=== PATIENT | male | born 1955 | race Caucasian/White ===

== ENCOUNTER → 2018-04-26 | Outpatient (CLI) | payer OTHER ==
[~2018-04-26] MED LIST: CYCLOBENZAPRINE10 MG PO; PREDNISONE50 MG PO
== END | disposition home or self-care (01) ==
LOC: ORTHO 02:25
DX: M25.552 Pain in left hip (principal); M79.605 Pain in left leg; R53.1 Weakness

== ENCOUNTER → 2018-05-10 | Outpatient (CLI) | payer OTHER | END | disposition home or self-care (01) | LOC: MRI 14:11 | DX: M47.896 Other spondylosis, lumbar region (principal); M48.061 Spinal stenosis, lumbar region without neurogenic claudication; M51.27 Other intervertebral disc displacement, lumbosacral region; M51.36 Other intervertebral disc degeneration, lumbar region ==

== ENCOUNTER 2019-07-19 09:17 | Inpatient (IN) | payer BC ==
[~2019-07-19] VITALS: Ht 175.2 cm; Wt 92.2 kg
[2019-07-19] VITALS (7 sets, daily range): BP systolic 109–165; BP diastolic 52–92
[2019-07-19 09:50] LABS: BASO # 0.1 10*3/uL (0.0-0.1); BASO % 0.9 % (0.0-1.0); EOS # 0.5 10*3/uL (0.0-0.4); EOS % 5.1 % (1.0-4.0); HEMATOCRIT 43.8 % (42.0-52.0); HEMOGLOBIN 15.2 g/dl (14.0-18.0); LYMPH # 3.2 10*3/uL (1.3-4.4); LYMPH % 34.9 % (27.0-41.0); MEAN CELL VOLUME 89.4 fl (80.0-94.0); MEAN CORPUSCULAR HGB CONC 34.7 g/dl (33.0-37.0); MEAN PLATELET VOLUME 9.2 fl (9.6-12.3); MONO # 0.7 10*3/uL (0.1-1.0); MONO % 7.7 % (3.0-9.0); NEUT # 4.7 10*3/uL (2.3-7.9); PLATELET COUNT AUTOMATED 234 10*3/uL (130-400); RED CELL DISTRI WIDTH 12.1 % (0-14.5); WHITE BLOOD COUNT 9.2 10*3/uL (4.8-10.8)
[2019-07-19 10:06] LABS: ALBUMIN 3.8 gm/dl (3.1-4.5); ALKALINE PHOSPHATASE 140 U/L (45-117); BUN 13 mg/dl (7-24); CHLORIDE 109 mmol/L (98-107); CREATININE 1.01 mg/dL (0.70-1.30); POTASSIUM 3.6 mmol/L (3.5-5.1); SGOT/AST 26 IU/L (3-35); SGPT/ALT 40 U/L (12-78); SODIUM 141 mmol/L (136-145)
[2019-07-19 10:09] LABS: TROPONIN I < 0.015 ng/ml (<0.045)
[2019-07-19 10:12] LABS: ACT PARTIAL THROMBO TIME 25.4 SECONDS (20.0-32.1)
--- NOTE | 2019-07-19 10:14 | NUR ---
SITTING UP IN BED, STEPHEN CONTINUES TO HAVE PAIN ACROSS CHEST.
--- NOTE | 2019-07-19 10:29 | NUR ---
EKG PERFORMED BY VERBAL ORDER OF DR RESTREPO D/T COMPLAINTS OF ONGOING CHEST PAIN.
--- NOTE | 2019-07-19 11:37 | NUR ---
[facility] to , under the services of ALEKSANDR Irving DO with a diagnosis of CHEST PAIN. Chief complaint is CHEST PAIN. Patient arrived via bed from ER. Monitor applied. Initial assessment completed. Vital signs taken and recorded. ALEKSANDR IRVING DO notified of admission to the unit. Orders received. See assessment for past medical history, medications and allergies. Patient and/or family oriented to unit. [facility]. Clothing/patient valuable form completed. STEPHANIE PEREIRA
--- NOTE | 2019-07-19 12:00 | NUR ---
OFF FLOOR FOR STRESS TEST
--- NOTE | 2019-07-19 12:15 | NUR ---
INFORMED CONSENT OBTAINED FOR STANDARD GXT WITH DR. EDMONDS. DR EDMONDS NOTIFIED 1 SET OF NEGATIVE ISOENZYMES AND TO HAVE REPEAT TROPONIN. WAITING FOR SECOND TROPONIN AND EXPLAINED TO PT.
--- NOTE | 2019-07-19 13:00 | NUR ---
TROPONIN 0.[address] EDMONDS NOTIFIED AND STRESS TEST CANCELLED. RETURNED TO NURSING UNIT VIA WHEELCHAIR AND REPORT GIVEN.
--- NOTE | 2019-07-19 16:52 | NUR ---
MORPHINE GIVEN FOR C/O CHEST PAIN. RATES 6/10 ON PAIN SCALE. WILL MONITOR
--- NOTE | 2019-07-19 17:53 | NUR ---
MORPHINE HELPING PER PT. WILL CONTINUE TO MONITOR.
--- NOTE | 2019-07-19 19:35 | NUR ---
[facility]INT DENIES ANY CHEST PAIN AT THIS TIME, STATES THE MORPHINE IS HELPING WITH THE PAIN. PATIENT STATES HE IS TO GO FOR HEART CATH TOMORROW, NO ORDER AT THIS TIME. PATIENT MADE AWARE OF NPO AT MIDNIGHT. HEP GTT ADJUSTED WITH THE NEW PTT. NEXT ONE AT 0130. PATIENT LEFT WITH CALL LIGHT IN REACH.
--- NOTE | 2019-07-19 21:14 | NUR ---
PATIENT STATED HE WAS HAVING CHEST PAIN, RATES 8/10. AND ALSO REQUESTED A SLEEPING PILL. PATIENT GIVEN MORPHINE AND RESTORIL. WILL MONITOR AND REASSESS.
--- NOTE | 2019-07-19 23:00 | NUR ---
PATIENT RESTING, NO SIGNS OF DISTRESS. MORPHINE EFFECTIVE.
--- NOTE | 2019-07-19 23:43 | NUR ---
24 HR chart check completed.
[2019-07-20] VITALS: BP 142/79
[2019-07-20 08:00] VITALS: BP 118/70
[2019-07-20 08:28] LABS: BASO # 0.1 10*3/uL (0.0-0.1); BASO % 0.6 % (0.0-1.0); EOS # 0.3 10*3/uL (0.0-0.4); EOS % 2.3 % (1.0-4.0); HEMOGLOBIN 16.1 g/dl (14.0-18.0); LYMPH % 24.1 % (27.0-41.0); MEAN CELL VOLUME 88.8 fl (80.0-94.0); MEAN CORPUSCULAR HGB 30.4 pg (27.0-31.0); MEAN CORPUSCULAR HGB CONC 34.3 g/dl (33.0-37.0); MEAN PLATELET VOLUME 9.1 fl (9.6-12.3); MONO # 0.8 10*3/uL (0.1-1.0); MONO % 6.2 % (3.0-9.0); NEUT # 8.4 10*3/uL (2.3-7.9); NEUT % 66.6 % (47.0-73.0); PLATELET COUNT AUTOMATED 215 10*3/uL (130-400); RED BLOOD COUNT 5.29 10*6/uL (4.50-5.90); WHITE BLOOD COUNT 12.6 10*3/uL (4.8-10.8)
--- NOTE | 2019-07-20 09:00 | NUR ---
Community [facility] Coordinator in to talk to patient. Patient states lives at home with family. There are no steps in the home. Physician: jodei hoover Pharmacy: [facility] Home health services: none Patient's level of ADLs: INDEPENDENT Patient has working utilities: all working DME: none Follow-up physician's appointment after d/c: will be made by hospitalist nurse director upon discharge Does patient want to access PORTAL?: no Discharge plan discussed with patient, he lives at home, is independent in adls and ambulation, works, drives, he states he will return home when medically stable and denies any home needs, case management will follow. NATE FUENTES
[2019-07-20] MEDS ORDERED: LOPRESSOR25 MG PO (09:01)
[2019-07-20] MEDS ORDERED: ATORVASTATIN CA80 M1 PO (09:01)
[2019-07-20] MEDS ORDERED: ASPIRIN ADULT L81 M2 PO (09:01)
--- NOTE | 2019-07-20 09:20 | NUR ---
PATIENT TRANSFERRED TO [facility] FOR HEART CATHETERIZATION. ALL PERSONAL BELONGINGS SENT WITH PATIENT. HEP GTT INFUSING 16U/KG/HR INTO LEFT ARM WITHOUT DIFFICULTIES AT TIME OF TRANSFER. TRANSFER PACKET GIVEN TO [facility]. REPORT GIVEN TO GREGORIO AT [facility].
[2019-07-20 09:34] LABS: ALKALINE PHOSPHATASE 130 U/L (45-117); BUN 10 mg/dl (7-24); CHLORIDE 109 mmol/L (98-107); PHOSPHOROUS 2.6 mg/dL (2.5-4.9); POTASSIUM 4.1 mmol/L (3.5-5.1); SGOT/AST 119 IU/L (3-35); SGPT/ALT 49 U/L (12-78); SODIUM 139 mmol/L (136-145); TOTAL PROTEIN 7.5 gm/dL (6.4-8.2)
== END 2019-07-20 09:20 | disposition short-term general hospital (02) | DRG 282 ==
LOC: ED 09:17 → 4E 10:35 → EDHOLD 10:35 → 4E 10:57
PROVIDERS: Emergency Medicine; Internal Medicine; ADMIT Internal Medicine
DX: I21.4 Non-ST elevation (NSTEMI) myocardial infarction (principal); F17.210 Nicotine dependence, cigarettes, uncomplicated; E83.41 Hypermagnesemia; R73.9 Hyperglycemia, unspecified; E87.8 Other disorders of electrolyte and fluid balance, not elsewhere classified; E78.5 Hyperlipidemia, unspecified; I10 Essential (primary) hypertension; E66.9 Obesity, unspecified; I25.119 Atherosclerotic heart disease of native coronary artery with unspecified angina pectoris; I25.2 Old myocardial infarction; R09.02 Hypoxemia; Z91.14 Patient's other noncompliance with medication regimen; Z71.6 Tobacco abuse counseling; Z82.49 Family history of ischemic heart disease and other diseases of the circulatory system; Z80.8 Family history of malignant neoplasm of other organs or systems; Z68.30 Body mass index [BMI] 30.0-30.9, adult

== ENCOUNTER → 2021-02-05 | Outpatient (CLI) | payer BC ==
[~2021-02-05] MED LIST changes: +ASPIRIN ADULT L81 M2 PO; +ATORVASTATIN CA80 M1 PO; +LOPRESSOR25 MG PO
== END | disposition home or self-care (01) ==
LOC: RAD 13:35
PROVIDERS: ATTEND Physician Assistant
DX: R05 Cough (principal); M47.814 Spondylosis without myelopathy or radiculopathy, thoracic region

== ENCOUNTER → 2023-04-04 | Outpatient (CLI) | payer MEDICARE, OTHER | END | disposition home or self-care (01) | LOC: US 08:41 → CT 10:00 | PROVIDERS: ATTEND Physician Assistant | DX: J43.2 Centrilobular emphysema (principal); I71.40 Abdominal aortic aneurysm, without rupture, unspecified; R91.1 Solitary pulmonary nodule; Z95.1 Presence of aortocoronary bypass graft ==

== ENCOUNTER → 2023-09-13 | Outpatient (CLI) | payer MEDICARE | END | disposition home or self-care (01) | LOC: CT 01:30 | PROVIDERS: ATTEND Physician Assistant | DX: R91.8 Other nonspecific abnormal finding of lung field (principal); I25.10 Atherosclerotic heart disease of native coronary artery without angina pectoris; J43.9 Emphysema, unspecified; J98.11 Atelectasis ==

== ENCOUNTER → 2024-04-12 | Outpatient (CLI) | payer MEDICARE | END | disposition home or self-care (01) | LOC: CT 08:56 | PROVIDERS: ATTEND Internal Medicine Critical Care Medicine | DX: Z12.2 Encounter for screening for malignant neoplasm of respiratory organs (principal); J44.9 Chronic obstructive pulmonary disease, unspecified; R91.1 Solitary pulmonary nodule; J43.2 Centrilobular emphysema; I25.10 Atherosclerotic heart disease of native coronary artery without angina pectoris; Z87.891 Personal history of nicotine dependence ==

== ENCOUNTER → 2024-11-26 | Day surgery (SDC) | payer MEDICARE ==
[~2024-11-26] VITALS: Ht 175.2 cm; Wt 88.5 kg
[~2024-11-26] MED LIST changes: +Lactated Ringer's Solution 1,000 ML IV ONE; +Lidocaine Hydrochloride 5 ML VIAL IV ONE; +PROPOFOL 200 MG/20 ML VIAL IV ONE
[2024-11-26 07:35] VITALS: BP 152/87
[2024-11-26 08:40] VITALS: BP 134/78
[2024-11-26 08:55] VITALS: BP 141/83
[2024-11-26 09:10] VITALS: BP 137/87
== END | disposition home or self-care (01) ==
LOC: SDC 11-12 10:15
PROVIDERS: ATTEND Surgery
DX: R19.5 Other fecal abnormalities (principal); D12.8 Benign neoplasm of rectum; K57.30 Diverticulosis of large intestine without perforation or abscess without bleeding; K64.8 Other hemorrhoids; I25.2 Old myocardial infarction; I10 Essential (primary) hypertension; I25.10 Atherosclerotic heart disease of native coronary artery without angina pectoris; E78.00 Pure hypercholesterolemia, unspecified; J45.909 Unspecified asthma, uncomplicated; F17.210 Nicotine dependence, cigarettes, uncomplicated; Z98.890 Other specified postprocedural states; Z79.899 Other long term (current) drug therapy

== ENCOUNTER → 2025-03-22 | Outpatient (CLI) | payer MEDICARE ==
[~2025-03-22] MED LIST changes: -Lactated Ringer's Solution 1,000 ML IV ONE; -Lidocaine Hydrochloride 5 ML VIAL IV ONE; -PROPOFOL 200 MG/20 ML VIAL IV ONE
== END | disposition home or self-care (01) ==
LOC: CT 08:48
PROVIDERS: ATTEND Internal Medicine Critical Care Medicine
DX: Z12.2 Encounter for screening for malignant neoplasm of respiratory organs (principal); J44.9 Chronic obstructive pulmonary disease, unspecified; R91.1 Solitary pulmonary nodule; J45.40 Moderate persistent asthma, uncomplicated; Z87.891 Personal history of nicotine dependence; Z68.28 Body mass index [BMI] 28.0-28.9, adult